=== PATIENT | female | born 1940 | race Caucasian/White ===

== ENCOUNTER 2016-07-26 12:06 | Outpatient (CLI) ==
[2015-01-23 12:19] VITALS: BMI 29.0
--- NOTE | 2016-07-27 07:33 | MAMMO ---
EXAM: Bilateral digital screening mammogram History: Screening Comparison: Bilateral mammogram 04/23/2015 Findings: MLO and CC views of bilateral breasts demonstrate extremely dense breast parenchyma which limits the sensitivity of mammography. Stable benign bilateral breast calcifications. There are n o dominant masses, no suspicious microcalcifications and no architectural distortions Impression: Benign stable mammogram. Recommend followup routine screening mammography in 1 year. BIRADS 2
== END 2016-07-26 12:07 | disposition home or self-care (01) ==
LOC: RAD 12:06
PROVIDERS: ATTEND Internal Medicine
DX: Z12.31 Encounter for screening mammogram for malignant neoplasm of breast (principal)

== ENCOUNTER 2016-10-15 20:06 | Emergency (ER) ==
[2016-10-15 20:13] VITALS: BP 111/67; TEMP 99.5; BMI 29.9
[2016-10-15 21:16] LABS: BASOPHILS # (AUTO) 0.1 K/uL (0-0.2); BASOPHILS % (AUTO) 1.7 % (0.0-3.0); EOSINOPHILS # (AUTO) 0.3 K/ul (0.0-0.7); EOSINOPHILS % (AUTO) 6.4 % (0.0-7.0); HEMATOCRIT 37.4 % (37.0-47.0); HEMOGLOBIN 12.9 g/dl (12.0-16.0); IMMATURE GRANULOCYTE % (AUTO) 0.2 % (0.0-5.0); LYMPHOCYTES # (AUTO) 0.8 K/uL (0.60-3.4); LYMPHOCYTES % (AUTO) 15.1 (10.0-50.0); MEAN CORPUSCULAR HEMOGLOBIN 31.1 pg (27.0-31.0); MEAN CORPUSCULAR HGB CONC 34.5 (31.8-35.4); MEAN CORPUSCULAR VOLUME 90.1 fl (81.0-99.0); MONOCYTES # (AUTO) 0.7 K/uL (0.4-2.0); MONOCYTES % (AUTO) 12.1 (0-10); NEUTROPHILS # (AUTO) 3.5 K/ul (2.0-6.9); NEUTROPHILS % (AUTO) 64.5; PLATELET COUNT 179 10^3/uL (140-440); RED BLOOD COUNT 4.15 10^6/ul (4.20-5.40); WHITE BLOOD COUNT 5.35 K/ul (4.6-10.2)
[2016-10-15 21:29] LABS: FLU INTERNAL QC INTERNAL QC VALID; RAPID FLU A POSITIVE (NEGATIVE); RAPID FLU B NEGATIVE (NEGATIVE)
[2016-10-15 21:31] LABS: ALBUMIN 4.3 g/dL (3.4-5.0); ALBUMIN/GLOBULIN RATIO 1.26; ANION GAP 13.9; BILIRUBIN,TOTAL 0.94 mg/dL (0.00-1.20); BUN/CREATININE RATIO 8.73; CALCIUM 9.8 mg/dL (8.2-10.2); CREATININE 1.03 mg/dL (0.60-1.30); POTASSIUM 3.9 mmol/L (3.5-5.10); TOTAL PROTEIN 7.7 g/dL (5.8-8.1)
--- NOTE | 2016-10-15 21:43 | ED.PDOC ---
General ED Provider: Dr. CHELSEA MICHEL-ER Chief Complaint: Fever Stated Complaint: joseline got a cough and fever since yesterday Time Seen by Physician: 20:10 Mode of Arrival: Walk-In Information Source: Patient Exam Limitations: No limitations Primary Care Provider: JEANCARLOS GALLEGO Nursing and Triage Documentation Reviewed and Agree: Yes Respiratory Complaint Exam - Respiratory Complaint/Exam Onset/Duration: 24hrs Symptoms Are: Still present Timing: Intermittent Initial Severity: Mild Current Severity: Mild Location: Nose, Chest Character: Reports: Non-productive cough Aggravating: Reports: URI Alleviating: Reports: None Associated Signs and Symptoms: Reports: Fever, URI, Nasal congestion. Denies: Rapid breathing, Dyspnea, Chills, Chest pain, Pleuritic chest pain, Wheezing, Hemoptysis, Dizziness, Calf pain, Calf swelling, Edema, Hoarseness, Sinus discomfort, Vomiting, Sore throat, Weight loss, Decreased oral intake, Increased thirst, Increased appetite, Increased urination History of Healthcare-Acquired Pneumonia: No Tuberculosis Risk Factors: Reports: None Home Oxygen Use: No Recent Stress Test: No Recent Echo/LV Function: No Current Antibiotic Use: No Current Asthma Medication Use: No Respiratory Distress: None Dysphagia Present: No Stridor Present: No JVD Present: No Accessory Muscle Use: No Retractions: Not Present Diminished Breath Sounds: No Sinus Tenderness: None Grunting Respirations: No Kussmaul Respirations: No Differential Diagnoses: Pneumonia, Bronchitis, Influenza Review of Systems - Review Of Systems Constitutional: Reports: Chills, Fever Eyes: Reports: No symptoms Ears, Nose, Mouth, Throat: Reports: No symptoms Respiratory: Reports: Cough Cardiac: Reports: No symptoms GI: Reports: No symptoms : Reports: No symptoms Musculoskeletal: Reports: No symptoms Skin: Reports: No symptoms Neurological: Reports: No symptoms Endocrine: Reports: No symptoms Hematologic/Lymphatic: Reports: No symptoms All Other Systems: Reviewed and Negative Past Medical History - Past Medical History Endocrine: Reports: DM 2 Cardiovascular: Reports: Hypertension Respiratory: Reports: None Hematological: Reports: None Gastrointestinal: Reports: None Genitourinary: Reports: None Neuro/Psych: Reports: None Musculoskeletal: Reports: Other Cancer: Reports: Colon (colon ) Last Menstrual Period: UNKNOWN - Surgical History General Surgical History: Reports: Orthopedic (Bilateral Knee replacements ), Back Surgery, Other (COLON RESECTION. ) - Family History Family History: Reports: Unknown - Social History Smoking Status: Never smoker Hx Substance Use: No Alcohol Screening: None Lives: With family Physical Exam - Physical Exam Appearance: Well-appearing, No pain distress, Well-nourished Eyes: JOLENE, EOMI, Conjunctiva clear ENT: Ears normal Neck: Supple Respiratory: Airway patent, Breath sounds clear, Breath sounds equal, Respirations nonlabored Cardiovascular: RRR GI/: Soft, Nontender, No masses, Bowel sounds normal, No Organomegaly Musculoskeletal: Normal strength Skin: Warm Neurological: Sensation intact Psychiatric: Affect appropriate, Mood appropriate Interpretation - Radiology Interpretation Radiology Interpretation By: ED Physician Radiology Results: Negative Exam Interpreted: CXR Critical Care Note - Critical Care Note Total Time (mins): 0 Course - Course Hematology/Chemistry: 10/15/16 20:45 10/15/16 20:45 Orders, Labs, Meds: Lab Review 10/15/16 10/15/16 20:35 20:45 WBC 5.35 RBC 4.15 L Hgb 12.9 Hct 37.4 MCV 90.1 MCH 31.1 H MCHC 34.5 RDW Coeff of Elizabeth 12.9 Plt Count 179 Immature Gran % (Auto) 0.2 Neut % (Auto) 64.5 Lymph % (Auto) 15.1 [place] % (Auto) 12.1 H Eos % (Auto) 6.4 Baso % (Auto) 1.7 Immature Gran # (Auto) 0.0 Neut # 3.5 Lymph # 0.8 [place] # 0.7 Eos # 0.3 Baso # 0.1 Sodium 133 L Potassium 3.9 Chloride 94 L Carbon Dioxide 29 Anion Gap 13.9 BUN 9 Creatinine 1.03 Estimated GFR (MDRD) 52.00 BUN/Creatinine Ratio 8.73 Glucose 134 H Calcium 9.8 Total Bilirubin 0.94 AST 47 H ALT 56 Alkaline Phosphatase 64 Total Protein 7.7 Albumin 4.3 Globulin 3.4 Albumin/Globulin Ratio 1.26 Influenza A (Rapid) Positive H Influenza B (Rapid) Negative Orders Category Date Time Status BLOOD CULTURE Stat LAB 10/15/16 20:45 Received CBC W/ AUTO DIFF Stat LAB 10/15/16 20:45 Completed COMPREHENSIVE METABOLIC PANEL Stat LAB 10/15/16 20:45 Completed MOLECULAR GROUP A STREP Stat LAB 10/15/16 20:35 Results RAPID FLU A/B Stat LAB 10/15/16 20:35 Completed STREP SCREEN Stat LAB 10/15/16 20:35 Results Oseltamivir Phosphate [Tamiflu] MEDS 10/15/16 22:00 Ordered 75 mg PO ONCE CXR [CHEST, 2 VIEWS PA & LAT] Stat RADS 10/15/16 20:34 Taken Vital Signs: Temp Pulse Resp BP Pulse Ox 10/15/16 20:07 99.5 F 93 H 20 111/67 96 Departure - Departure Time of Disposition: 21:44 Disposition: HOME SELF-CARE Discharge Problem: Influenza Instructions: Influenza (ED) Condition: Good Pt referred to PMD for follow-up: Yes Additional Instructions: tamiflu 75mg bid #10--fluids--rest--recheck in 48hrs if not better Allergies/Adverse Reactions: Allergies codeine Adverse Reaction (Intermediate, Verified 10/15/16 20:13) Nausea Home Medications: Ambulatory Orders Alprazolam [Xanax] 0.25 mg PO BID 05/27/13 Calcium Carbonate/Vitamin D3 [Os-Atif 500+D Tablet] 1 each PO BID 05/27/13 Digoxin [Lanoxin] 250 mcg PO DAILY 05/27/13 Gabapentin [Neurontin] 600 mg PO BEDTIME 05/27/13 Losartan/Hydrochlorothiazide [Hyzaar 50-12.5 Tablet] 1 each PO DAILY 05/27/13 Meclizine HCl [Motion Sickness Relief] 25 mg PO Q8HR 05/27/13 Memantine HCl [Namenda] 10 mg PO BID 05/27/13 Metformin HCl [Glucophage] 500 mg PO BIDWM 05/27/13 Propranolol HCl [Inderal] 40 mg PO BID 05/27/13 Venlafaxine HCl [Effexor Xr] 75 mg PO DAILY 05/27/13 Marion-3 Fatty Acids [Fish Oil] 500 mg PO BID 09/14/15 Red Yeast Rice 600 mg PO DAILY 09/14/15 Guaifenesin/D-Methorphan Hb/PE [Robitussin Cough-Cold Cf Liq] 1 - 2 teaspoon PO Q4-6H PRN alem 09/28/16 Disposition Discussed With: Patient
[2016-10-15] MEDS ORDERED: TAMIFLU ONE (21:45)
[2016-10-15] MEDS ORDERED: TAMIFLU PO SCH (22:00)
[2016-10-15 22:57] LABS: ABG BASE EXCESS 2 (-2.0-2.0); ABG HCO3 25.8 (22.0-26.0); ABG PH 7.452 (7.35-7.45); ABG TCO2 27 (22.0-28.0)
--- NOTE | 2016-10-16 06:02 | DI ---
Examination: Two radiographic images of the chest. Comparison: 10/13/2012. Reason for study: Cough. FINDINGS: No pneumothorax, pleural effusion, or focal consolidation. The cardiac silhouette is not enlarged. The osseous structures are grossly unremarkable. Impression: No acute cardiopulmonary process.
== END 2016-10-15 21:51 | disposition home or self-care (01) ==
LOC: ED 20:06
DX: J09.X2 Influenza due to identified novel influenza A virus with other respiratory manifestations (principal); E11.9 Type 2 diabetes mellitus without complications; I10 Essential (primary) hypertension; Z79.899 Other long term (current) drug therapy
CPT/HCPCS: 36415; 80053; 82803; 85025; 87040; 87651; 87804; 87880; 93005; 93010; 99283

== ENCOUNTER 2017-08-01 11:04 | Outpatient (CLI) | payer OTHER ==
--- NOTE | 2017-08-02 09:52 | MAMMO ---
EXAM: Bilateral digital screening mammogram (2-D and 3-D) History: Screening Comparison: Bilateral mammogram 07/26/2016 Findings: MLO and CC views of bilateral breasts demonstrate heterogeneously dense breast parenchyma which can obscure small lesions. CAD was reviewed by the radiologist. Tomosynthesis was performed. Stable benign bilateral breast calcifications. There are no dominant masses, no suspicious microcal cifications and no architectural distortions Impression: Benign stable mammogram. Recommend followup routine screening mammography in 1 year. BIRADS 2
== END 2017-08-01 11:05 | disposition home or self-care (01) ==
LOC: RAD 11:04
PROVIDERS: ATTEND Internal Medicine
DX: Z12.31 Encounter for screening mammogram for malignant neoplasm of breast (principal)
CPT/HCPCS: 77067

== ENCOUNTER 2017-08-03 06:30 | Outpatient (CLI) ==
--- NOTE | 2017-08-07 14:31 | ECHO2D ---
Date of Exam: 08/03/17 Ordering Physician: DR. JEANCARLOS GALLEGO Room #: OP Reason for Echo: SURGICAL CLEARANCE, SOB M-Mode Normal Adult Results LV Dimensions Normal Adult Results AoV Opening excursions >1.6 >1.6 LVEDD-base- 3.5-5.8 4.1 Ao root dimensions 2.0-3.7 3.1 LVESD-base- 3.1-4.6 L. Atrium dimensions 1.9-3.8 3.7 Post. Wall thickness 0.8-1.1 1.2 IV septum (thickness) 0.7-1.2 1.3 Post. Wall excursion 0.72-1.3 NORMAL Septal motion NORMAL Systolic motion R. Ventricular cavity 1.5-2.0 NORMAL LVEF 60% 71% Paradoxical septal wall motion NORMAL 2-D : 2-D M Mode Echocardiogram was performed using apical four chamber and left parasternal long and short axis views. Mitral, tricuspid and aortic valves appear to be normal. Contractility of the left ventricle seems to be normal, so is the cavity size. Left atrial cavity size and aortic root appear to be normal. There is no pericardial effusion. There is no thrombus noted in the left ventricular or left aortic cavity. No mitral valve prolapse noted. M-MODE: MV: NORMAL AV: NORMAL TV: NORMAL PV: CHAMBER SIZE: NORMAL WALL MOTION: NORMAL PERICARDIUM: NORMAL INTERPRETATION: 1. LEFT VENTRICULAR HYPERTROPHY (MILD) 2. NORMAL LEFT VENTRICULAR CONTRACTILITY 3. NORMAL VALVES MTDD
--- NOTE | 2017-08-07 14:34 | ECHOSTRESS ---
Date of Exam: 08/03/17 Ordering Physician: DR. JEANCARLOS GALLEGO Reason for Echo: SURGICAL CLEARANCE, SOB, STRESS TEST--NO ISCHEMIA M-Mode Normal Adult Results LV Dimensions Normal Adult Results AoV Opening excursions >1.6 LVEDD-base- 3.5-5.8 Ao root dimensions 2.0-3.7 LVESD-base- 3.1-4.6 L. Atrium dimensions 1.9-3.8 Post. Wall thickness 0.8-1.1 IV septum (thickness) 0.7-1.2 Post. Wall excursion 0.72-1.3 Septal motion Systolic motion R. Ventricular cavity 1.5-2.0 LVEF 60% Paradoxical septal wall motion 2-D: NORMAL LEFT VENTRICULAR CONTRACTILITY--RESTING AND POST EXERCISE M-MODE: MV: AV: TV: PV: CHAMBER SIZE: WALL MOTION:NORMAL LEFT VENTRICULAR CONTRACTILITY--RESTING AND POST EXERCISE PERICARDIUM: INTERPRETATION: 1. NORMAL LEFT VENTRICULAR CONTRACTILITY--RESTING AND POST EXERCISE MTDD
--- NOTE | 2017-08-07 15:00 | STRESSECHO ---
Date of Test: 08/03/17 Reason for Exam: SURGICAL CLEARANCE Ordering Physician: DR. JEANCARLOS GALLEGO Physical Findings: S1, S2, NO S3 Current Medications: LANOXIN, INDERAL, METFORMIN, XANAX, EFFEXOR, MECLIZINE, GABAPENTIN, LOSARTAN, NAMENDA Resting EKG: SINUS RHYTHM/NO ACUTE CHANGES/ NONSPECIFIC ST-T WAVE CHANGES Target Heart Rate: 123/145 STAGE MPH/GRADE HEART RATE BPM BLOOD PRESSURE mmhg RHYTHM S-T SEGMENT +/- UP DOWN SYMPTOMS,COMMENTS At Rest 65 128/70 SR X NONE 1 1.7/10% 104 120/60 SR X NONE 2 2.5/12% 3 3.4/14% 4 4.2/16% 5 5.0/18% Immediately after 120 SR X FATIGUE Durations of Exercise: 3:56 Maximum Heart Rate Reached: 120 Reason for Termination: FATIGUE 1 MINUTE POST EXERCISE: HR 87 BPM, BP 154/50 MMHG, SR, +/-, NO COMMENTS 5 MINUTES POST EXERCISE: HR 74 BPM, BP 140/68 MMHG, SR, +/-, NO COMMENTS INTERPRETATION: 97% OXYGEN SATURATION WITH EXERCISE ON ROOM AIR METS 6.8 1. NO EVIDENCE OF ISCHEMIA BY ST-T WAVE 2. NO CHEST PAIN OR CHEST DISCOMFORT 3. BLOOD PRESSURE RESPONSE NORMAL 4. NO ARRHYTHMIAS NORMAL LEFT VENTRICULAR CONTRACTILITY RESTING AND POST EXERCISE MTDD
== END 2017-08-03 06:31 | disposition home or self-care (01) ==
LOC: CAR 06:30
PROVIDERS: ATTEND Internal Medicine
DX: R06.02 Shortness of breath (principal); I10 Essential (primary) hypertension; M21.612 Bunion of left foot; Z01.810 Encounter for preprocedural cardiovascular examination
CPT/HCPCS: 93005; 93010

== ENCOUNTER 2017-10-27 06:34 | Outpatient (CLI) | payer OTHER ==
--- NOTE | 2017-10-30 12:40 | ECHO2D ---
Date of Exam: 10/27/17 Ordering Physician: DR. JEANCARLOS GALLEGO Room #: OP Reason for Echo: SOB, DIZZINESS, ATAXIA M-Mode Normal Adult Results LV Dimensions Normal Adult Results AoV Opening excursions >1.6 >1.6 LVEDD-base- 3.5-5.8 4.1 Ao root dimensions 2.0-3.7 3.3 LVESD-base- 3.1-4.6 L. Atrium dimensions 1.9-3.8 4.3 Post. Wall thickness 0.8-1.1 1.2 IV septum (thickness) 0.7-1.2 1.2 Post. Wall excursion 0.72-1.3 NORMAL Septal motion NORMAL Systolic motion R. Ventricular cavity 1.5-2.0 NORMAL LVEF 60% 59% Paradoxical septal wall motion NORMAL 2-D : 2-D M Mode Echocardiogram was performed using apical four chamber and left parasternal long and short axis views. Mitral, tricuspid and aortic valves appear to be normal. Contractility of the left ventricle seems to be normal, so is the cavity size. Enlarged left atrial cavity size. Aortic root appears to be normal. There is no pericardial effusion. There is no thrombus noted in the left ventricular or left aortic cavity. No mitral valve prolapse noted. M-MODE: MV: NORMAL AV: NORMAL TV: NORMAL PV: CHAMBER SIZE: ENLARGED LEFT ATRIAL CAVITY WALL MOTION: NORMAL PERICARDIUM: NORMAL INTERPRETATION: 1. BORDERLINE LEFT VENTRICULAR HYPERTROPHY 2. NORMAL LEFT VENTRICULAR CONTRACTILITY 3. NORMAL VALVES MTDD
== END 2017-10-27 06:35 | disposition home or self-care (01) ==
LOC: CAR 06:34
PROVIDERS: ATTEND Internal Medicine
DX: R06.02 Shortness of breath (principal); R42 Dizziness and giddiness; R27.0 Ataxia, unspecified
CPT/HCPCS: 93005; 93010

== ENCOUNTER 2017-10-30 06:19 | Outpatient (CLI) ==
[2017-10-30] MEDS ORDERED: DOBUTAMINE 250 ML IV ONE (06:56)
[2017-10-30] MEDS ORDERED: ATROPINE SULFATE PFS ONE (06:56)
--- NOTE | 2017-10-30 09:50 | NM ---
EXAM: Myocardial perfusion imaging HISTORY: Shortness of breath and dizziness COMPARISON: None. TECHNIQUE: Patient was injected 3.6 mCi of thallium 201 chloride intravenously while at rest. SPECT imaging of the heart was acquired. The patient was stressed using dobutamine protocol and injected 2 6.9 mCi of Tc99m Sestamibi intravenously. Another SPECT imaging of the heart was acquired. Gated ca rdiac study was performed. FINDINGS: Moderately reduced perfusion is noted involving the anterior wal and intraventricular septu m. l. This shows reperfusion on delayed imaging consistent with reversible ischemia. Inferior and l ateral jackson show normal perfusion. Left ventricular ejection fraction is 74%. Region of anterior w all and septum is hypokinetic. IMPRESSION: 1. SPECT myocardial perfusion imaging shows reversible ischemia involving the anterior wall and intr aventricular septum. 2. Normal left ventricular ejection fraction. Slightly hypokinetic anterior wall and septum.
--- NOTE | 2017-10-30 12:48 | ECHOSTRESS ---
Date of Exam: 10/30/17 Ordering Physician: DR. JEANCARLOS GALLEGO Reason for Echo: SOB, ATAXIA, STRESS TEST--INCONCLUSIVE M-Mode Normal Adult Results LV Dimensions Normal Adult Results AoV Opening excursions >1.6 LVEDD-base- 3.5-5.8 Ao root dimensions 2.0-3.7 LVESD-base- 3.1-4.6 L. Atrium dimensions 1.9-3.8 Post. Wall thickness 0.8-1.1 IV septum (thickness) 0.7-1.2 Post. Wall excursion 0.72-1.3 Septal motion Systolic motion R. Ventricular cavity 1.5-2.0 LVEF 60% Paradoxical septal wall motion 2-D: NORMAL LEFT VENTRICULAR CONTRACTILITY--RESTING AND DURING DOBUTAMINE INFUSION M-MODE: MV: AV: TV: PV: CHAMBER SIZE: WALL MOTION: NORMAL LEFT VENTRICULAR CONTRACTILITY--RESTING AND DURING DOBUTAMINE INFUSION PERICARDIUM: INTERPRETATION: 1. NORMAL LEFT VENTRICULAR CONTRACTILITY--RESTING AND DURING DOBUTAMINE INFUSION MTDD
== END 2017-10-30 06:20 | disposition home or self-care (01) ==
LOC: CAR 06:19
PROVIDERS: ATTEND Internal Medicine
DX: R94.31 Abnormal electrocardiogram [ECG] [EKG] (principal); R06.02 Shortness of breath; R42 Dizziness and giddiness; R27.0 Ataxia, unspecified

== ENCOUNTER 2017-10-31 08:04 | Outpatient (CLI) ==
--- NOTE | 2017-10-31 09:21 | US ---
EXAM: ULTRASOUND CAROTID DUPLEX, BILATERAL HISTORY: Dizziness FINDINGS: Eagle-scale ultrasound, color Doppler and spectral analysis was performed. Velocities are in meters per second. By eagle scale and color Doppler imaging, there were regions of heterogeneous plaque formation identif ied within the carotid bulbs and internal carotid arteries. These regions of plaque appeared to anmol in less than 50% vessel diameter. RIGHT: External carotid artery peak systolic velocity: 0.7/0.0 Common carotid artery peak systolic velocity/end diastolic velocity: 0.9/0.2 Internal carotid artery peak systolic velocity: 0.5 ICA/CCA peak systolic velocity ratio: 0.5 ICA end diastolic velocity: 0.1 LEFT: External carotid artery peak systolic velocity: 0.7/0.0 Common carotid artery peak systolic velocity/end diastolic velocity: 0.7/0.2 Internal carotid artery peak systolic velocity: 0.5 ICA/CCA peak systolic velocity ratio: 0.8 ICA end diastolic velocity: 0.2 The right and left vertebral arteries were antegrade. IMPRESSION: 1. By eagle scale and color Doppler imaging, there were regions of heterogeneous plaque formation camila ntified within the carotid bulbs and internal carotid arteries. These regions of plaque appeared to remain less than 50% vessel diameter. 2. Internal carotid artery peak systolic velocities and ICA/CCA peak systolic velocity ratios indica te no hemodynamically significant stenosis bilaterally. 3. Both vertebral arteries were antegrade.
--- NOTE | 2017-10-31 15:25 | MRI ---
EXAM: MRI brain without and with IV contrast. DATE: 31 October 2017. HISTORY: .Dizziness, ataxia, forgetfulness. Symptoms x 1 week. TECHNIQUE: Sagittal T1W pre and postcontrast, axial T2W, axial FLAIR, axial T1W pre and postcontrast , axial DWI, coronal T1W postcontrast, and coronal T2W GRE sequences of the brain were obtained using 1.2 Sandra magnet. CONTRAST: Dotarem - 14 ml IV. COMPARISON: CT head 14 April 2014 and 05/06/2010. MRI brain 01/07/2016. FINDINGS: The lateral ventricles, third ventricle, Sylvian fissures are disproportionally large. Tr ansverse dimension across both lateral ventricles is 4.2 cm. Transverse dimension across the third v entricle is 8.2 mm. Aqueduct of Sylvius is patent. Fourth ventricle is not substantially enlarged. Some cerebral sulci are upper normal to slightly prominent. No midline shift, mass effect or abnorm al extra-axial fluid collection is apparent. No acute infarct, hemorrhage or enhancing neoplasm is i dentified. No abnormal contrast enhancement is identified in the brain, meninges or dura. Narrow, c onfluent rim of T2W/FLAIR hyperintensity is observed in the white matter abutting each lateral ventri carlos. Large number of 2-10 mm, T2W/FLAIR bright, non-enhancing foci are scattered in the pereyra radia ta, centrum semiovale and subcortical white matter bilaterally. The reveles - white matter differentiat ion is normal. No migration or diverticulation abnormality is identified. The amygdala, hippocampus , and parahippocampal gyri are similar bilaterally. The 7th/8th cranial nerve complexes, cerebellopo ntine angles, brainstem, and visible cervical spinal cord are normal. There is no cerebellar tonsill ar ectopia. The pituitary gland is normal in size and signal. Corpus callosum body is mildly bowed upward due to ventricular prominence. Flow voids are present in the major intracranial arteries and in the dural venous sinuses. No aneurysm, AVM or dural venous sinus thrombosis is apparent. No orbi t abnormality is identified. The mastoid air cells are unremarkable. There is no acute sinusitis. No neck mass or lymphadenopathy is detected. Thickening of the inner table of the frontal bone appea rs benign. No calvarial neoplasm or acute fracture is evident. IMPRESSIONS: 1. No acute infarct, hemorrhage, or enhancing neoplasm. 2. Mild/moderate supratentorial small vessel disease. 3. Probable central > peripheral cerebral atrophy. In the right clinical setting, chronic NPH super imposed on minor atrophy might be considered. 4. Moderate/marked, benign hyperostosis frontalis interna.
== END 2017-10-31 08:05 | disposition home or self-care (01) ==
LOC: RAD 08:04
PROVIDERS: ATTEND Internal Medicine
DX: R42 Dizziness and giddiness (principal); R27.0 Ataxia, unspecified; R41.3 Other amnesia

== ENCOUNTER 2018-06-11 13:38 | Outpatient (CLI) | payer OTHER | END 2018-06-11 13:39 | disposition home or self-care (01) | LOC: CAR 13:38 | PROVIDERS: ATTEND Psychiatry & Neurology Sleep Medicine | DX: G47.33 Obstructive sleep apnea (adult) (pediatric) (principal) | CPT/HCPCS: 95810 ==

== ENCOUNTER 2018-08-27 09:06 | Outpatient (CLI) | payer OTHER ==
--- NOTE | 2018-08-27 10:14 | MAMMO ---
EXAM: Bilateral digital screening mammogram (2-D and 3-D) History: Screening Comparison: Bilateral mammogram 08/01/2017 Findings: MLO and CC views of bilateral breasts demonstrate heterogeneously dense breast parenchyma which can obscure small lesions. CAD was reviewed by the radiologist. Tomosynthesis was performed. Stable benign bilateral breast calcifications. There are no dominant masses, no suspicious microcal cifications and no architectural distortions Impression: Benign stable mammogram. Recommend followup routine screening mammography in 1 year. BIRADS 2, benign
== END 2018-08-27 09:07 | disposition home or self-care (01) ==
LOC: RAD 09:06
PROVIDERS: ATTEND Internal Medicine
DX: Z12.31 Encounter for screening mammogram for malignant neoplasm of breast (principal)

== ENCOUNTER 2018-10-19 09:11 | Outpatient (CLI) ==
--- NOTE | 2018-10-19 09:55 | DI ---
EXAM: Left elbow three-view HISTORY: Left elbow pain COMPARISON: None FINDINGS: The bones are normal. The alignment is normal. No joint effusion. No focal soft tissue abn ormality. IMPRESSION: Normal examination.
--- NOTE | 2018-10-19 09:55 | DI ---
Exam: Cervical spine three-view. HISTORY: Neck pain. Comparison: CT neck 04/23/2010. Findings: Anterior, lateral and to open mouth views of the cervical spine are submitted. These demo nstrate multilevel mild to moderate degenerative disc and facet arthropathy with no compression fract ure. There is 2 mm retrolisthesis of C6 on C7. The odontoid process appears intact and normally everardo tered. The patient is edentulous. The prevertebral soft tissues within normal limits. Impressions: Multilevel mild to moderate degenerative disease with no compression fracture. 2 mm retrolisthesis of C6 on C7.
--- NOTE | 2018-10-19 09:55 | DI ---
Exam: Left shoulder three-view. HISTORY: Left shoulder pain. Findings: Three views of the left shoulder are submitted. These demonstrate mild glenohumeral osteo phytosis. There is mild acromioclavicular osteophytosis. No acute fracture or dislocation. No osse ous erosion or radiodense foreign body. No soft tissue calcifications. The adjacent left ribs appea r intact there is no pneumothorax. No focal soft tissue swelling. Impressions: Mild degenerative findings of the glenohumeral and acromioclavicular joints with no acu te fracture or dislocation of the left shoulder.
== END 2018-10-19 09:12 | disposition home or self-care (01) ==
LOC: RAD 09:11
PROVIDERS: ATTEND Internal Medicine
DX: M25.512 Pain in left shoulder (principal); M54.2 Cervicalgia; M25.522 Pain in left elbow

== ENCOUNTER 2018-11-20 08:00 | Outpatient (RCR) ==
--- NOTE | 2018-11-14 11:10 | RS.OTEVAL ---
Subjective Date of Note: 11/14/18 Visit #: 1 Number of visits approved by Insurance: 1 Date of Evaluation: 11/14/18 Payer Source: MEDICARE Date of Onset/Injury/Change in Status: 05/24/13 Surgery Performed?: Yes (TKA) Treatment Diagnosis: Left shoulder pain Treatment Side (optional): Left Prior Level of Function.....Patient was independent with: ADL's, Self Care, Work /Vocation, Caregiving, Ambulation/Mobility, Community Integration/Access History of Condition/Mechanism of Injury: Pt reports she has had pain for about 3 years of and on. Pt now has pain whenever she moves her LUE into shoulder flexion, and external rotation. Pt reported pain at 4/5. Pt had facial grimaces with shoulder flexion whether she was in supine or in sitting postion. Pt then reports numbness when she has her arm in a position for a long time. Pt reports tingling in her hands when in a position for a long time. Level of Function: Pt is independent with self cares. Pt has pain with shoulder flexion and external rotation with LUE. Pt having a hard time with completing tasks up over her head. Pt having a hard time with fixing her hair. Functional Limitations: Sleep, Self Care, Reaching, Lifting, Carrying Current Complaints/Gains: Pt has difficulty sleeping on the LUE. Pt reports she has trouble trying to peel her potatoes and cutting her foods. Pt reports if she has her LUE in a certain position for a while then her hand will go tingly. Pt reports her LUE often feels heavy and weak. Pt reported her pain at a 4/10 when she moves her LUE into flexion and ext. rot. Medical History Medical History: Unremarkable, Diabetes, Arthritis, Cancer Medical History Comments:: tachycardia, B TKA, heart catheter, Toe surgery, CTR on RUE, breast biopsy, Back surgery 2006. hysterectomy 1970. Surgical History: Knee Replacement Surgical History Comments:: hysterectomy, B TKA, heart catheterization, Smoking Status: Never smoker Diagnostic Testing/Imaging:: X-ray indicative of severe OA prior to surgery. Patient's Goals: To be able to use my left arm without this pain and heaviness. Pain Assessment - Pain Description Pain Description: Tightness, Radiating, Sharp, Aching Pain Location: Left posterior scapula and down the left shoulder deltoid during shoulder flexion. Pt had tender points in the subscapularis and complained of left wrist has started hurting too. Pain Description: Aches, sharp, and feels weak. Pt reports tingling when in position longtime Current Pain Intensity: 4 Worst Pain Intensity: 8 Functional Outcome Measures UE Functional Index: 40 (Dash score 72%) - G Codes & Severity Modifier G Codes: . Source of G Code score: . Observation - Observation Posture: Normal Handedness: Right Shoulder ROM: Right WFL's Shoulder Muscle Strength: Right WFL's - Left Shoulder ROM Left Shoulder Flexion: 140 (stops due to pain) Left Shoulder Extension: 65 Left Shoulder Abduction: 150 (stops due to pain) Left Shoulder Horizontal Adduction: 35 Left Shoulder Internal Rotation: 90 Left Shoulder External Rotation: 40 Left Shoulder ROM Limitations: Pain - Left Shoulder Strength Left Shoulder Flexion: 3- Fair- Left Shoulder Extension: 4 Good Left Shoulder Abduction: 4- Good- Left Shoulder Adduction: 4 Good Left Shoulder External Rotation: 3- Fair- Left Shoulder Internal Rotation: 4- Good- - Special Tests Shoulder Drop Arm Test: Negative Left Elbow ROM: Bilaterally WFL's Elbow Muscle Strength: Bilaterally WFL's Wrist ROM: Bilaterally WFL's Wrist Muscle Strength: Bilaterally WFL's - Blasting Worker Strength Left Blasting Worker Strength: 33 Right Blasting Worker Strength: 41 Blasting Worker Strength Left Hand Blasting Worker Strength: 33 Right Hand Blasting Worker Strength: 41 Dynamometer Testing Position: 2nd Position Palpation Palpation Findings: Tenderness, Trigger Point, Muscle Guarding Comments:: Left scapula was not gliding easily. Sensation Right Upper Extremity: Intact/Normal Left Upper Extremity: Intact/Normal Sensation Description: Tingling Comments: After in a position of shoulder flexion for an extended period of time. Interventions - Exercise/Activities Exercise/Activities/Manual Therapy: Manual therapy-tenderpoint and trigger point releases to the posterior subcapularis, gentle scapular gliding and scapular release completed. Stretching over a roll placed under the patient at the scapular line and have her complete shoulder flexion x 10 reps. Educated patient to drink water. HOME EXERCISE PROGRAM: stretching over a roll behind her scapula hold 10 seconds x 15 reps. drinking water. ice if sore. - Objective Findings Objective Findings:: Pt's Left scapula was not gliding well. Pt has tender points and subscapularis tender points and needed manual therapy to decrease the pain and tenderness. - Charges Timed Code Treatment Minutes: 65 Total Treatment Time: 35 Procedures billed for this date of service:: Evaluation medium, MT x 2 EVALUATION COMPLEXITY LEVEL: HISTORY: Medium, EXAM OF BODY SYSTEMS: Medium, CLINICAL DECISION MAKING: Medium Assessment Assessment: Pt made progress with her pain and her AROM following manual therapy , scapular release and tender point release, scapular glides. Patient Education: Education of diagnosis, Body/Joint mechanics, Home Exercise Program, Education of Plan of Care Rehab Potential: Good Problems/Comments: Pt has pain with LUE shoulder AROM. Pt has weakness of LUE, weak public relations counselor and tingles after in a position for prolonged amount of time. Short Term Goals Goal #1: LUE shoulder pain to 2/10. Goal to be met by: 11/23/18 Goal #2: Increase LUE shoulder external rotation to 90 deg. Goal to be met by: 11/23/18 Goal #3: Pt to increase strength of LUE shoulder to 4/5. Goal to be met by: 11/23/18 Goal #4: Pt to be independent with home exercise program. Goal to be met by: 11/23/18 Fitness Instructor Goals Goal #1: LUE shoulder pain to 0/10. Goal to be met by: 12/07/18 Goal #2: Increase LUE shoulder AROM to be WFL. Goal to be met by: 12/07/18 Goal #3: Pt to increase strength of LUE shoulder to 4+/5. Goal to be met by: 12/07/18 Goal to be met by: 12/07/18 Plan - Treatment to be provided Procedures: Therapeutic Exercises, Therapeutic Activity, Neuromuscular Rehab, Manual Therapy, Patient Education Modalities: Ultrasound/Phonophoresis, Hot Packs - Treatment Plan Frequency: 3 X week Duration: 3 weeks Dates of Fitness Instructor Goals: December 07, 2018 Expiration date of current Insurance Approval:: December 07, 2018 - Treatment Code (1) Left shoulder pain Code(s): M25.512 - PAIN IN LEFT SHOULDER Comments: M25.512 Left shoulder pain (2) Stiffness of left shoulder joint Code(s): M25.612 - STIFFNESS OF LEFT SHOULDER, NOT ELSEWHERE CLASSIFIED Comments: M25.612 Joint stiffness of Left shoulder
--- NOTE | 2018-11-16 15:40 | RS.OTDNOTE ---
Subjective Date of Note: 11/16/18 Visit #: 2 Number of visits approved by Insurance: 9 Date of Evaluation: 11/14/18 Payer Source: MEDICARE Treatment Diagnosis: Left shoulder pain *Precautions: NA Current Complaints/Gains: Pt states she had a shot in her shoulder on Monday. States she has not been applying a CP but is agreeable to making and donning a CP 1-2 times daily over the wknd and after prolonged UE use. Pain Assessment - Pain Description Pain Description: Tightness, Radiating, Sharp, Aching Pain Location: Left posterior scapula and down the left shoulder deltoid during shoulder flexion. Pt had tender points in the subscapularis and complained of left wrist has started hurting too. Pain Description: Aches, sharp, and feels weak. Pt reports tingling when in position longtime Modalities - Treatment Modality: Ultrasound Parameters/Method Applied: .5w/cm2 x 12 mins to posterior shoulder/trapezius Patient Position: Sitting - Hot Pack/Cryotherapy Treatment: Hot Pack, Cryotherapy Interventions - Exercise/Activities Exercise/Activities/Manual Therapy: Manual therapy/MFR-tenderpoint and trigger point releases to the posterior subcapularis with gentle scapular gliding and scapular release completed. Pt in supine position for PROM-AROM and isometric ex's of shoulder flexion/extension, IR/ER, and adb/adduction. HOME EXERCISE PROGRAM: Isometric ex's of shoulder along with applying CP x 1-2 times daily - Objective Findings Objective Findings:: Pt's Left scapula was not gliding well. Pt has tender points and subscapularis tender points and needed manual therapy to decrease the pain and tenderness. - Charges Timed Code Treatment Minutes: 35 Total Treatment Time: 45 Procedures billed for this date of service:: CP US MT Assessment Patient Education: Education of diagnosis, Body/Joint mechanics, Home Exercise Program, Home Safety, Activity Modification, Education of Plan of Care Patient demonstrates compliance with HEP?: Yes Short Term Goals Goal #1: LUE shoulder pain to 2/10. Goal to be met by: 11/23/18 Progress towards goal: Progressing Goal #2: Increase LUE shoulder external rotation to 90 deg. Goal to be met by: 11/23/18 (following PROM) Progress towards goal: Partially Met Goal #3: Pt to increase strength of LUE shoulder to 4/5. Goal to be met by: 11/23/18 Progress towards goal: Partially Met Goal #4: Pt to be independent with home exercise program. Goal to be met by: 11/23/18 Progress towards goal: Progressing Billet Worker Goals Goal #1: LUE shoulder pain to 0/10. Goal to be met by: 12/07/18 Progress towards goal: Progressing Goal #2: Increase LUE shoulder AROM to be WFL. Goal to be met by: 12/07/18 Progress towards goal: Progressing Goal #3: Pt to increase strength of LUE shoulder to 4+/5. Goal to be met by: 12/07/18 Progress towards goal: Progressing Goal to be met by: 12/07/18 Plan Dates of Billet Worker Goals: December 07, 2018 Expiration date of current Insurance Approval:: 12/07/18 PLAN: Continue per POC x2/wk to max functional UE AROM/strength.
--- NOTE | 2018-11-20 08:35 | RS.OTDNOTE ---
Subjective Date of Note: 11/20/18 Visit #: 3 Number of visits approved by Insurance: 9 Date of Evaluation: 11/14/18 Payer Source: MEDICARE Treatment Diagnosis: Left shoulder pain *Precautions: NA Current Complaints/Gains: Pt states no c/o pain at rest or with all movement/ TE. States she made a CP as instructed and has been utilizing it several times daily. States good understanding of HEP of isometric with exercise print-out. States between the shot and the CP, "I'm fixed." Pt agreeable to DC at this time-I with HEP and CP application. Pain Assessment - Pain Description Pain Description: Tightness, Radiating, Sharp, Aching Pain Location: Left posterior scapula and down the left shoulder deltoid during shoulder flexion. Pt had tender points in the subscapularis and complained of left wrist has started hurting too. Pain Description: Aches, sharp, and feels weak. Pt reports tingling when in position longtime Current Pain Intensity: 0 Worst Pain Intensity: 0 Interventions - Exercise/Activities Exercise/Activities/Manual Therapy: Print-out and instructions of HEP performed including isometric ex of shoulder flexion, extension, IR/ER, and shoulder retraction ex's. Pt ed on continued use of CP application and to contact therapy if pain or decreased AROM begins. HOME EXERCISE PROGRAM: Isometric ex's of shoulder along with applying CP x 1-2 times daily - Objective Findings Objective Findings:: Pt's Left scapula was not gliding well. Pt has tender points and subscapularis tender points and needed manual therapy to decrease the pain and tenderness. - Charges Timed Code Treatment Minutes: 20 Total Treatment Time: 20 Procedures billed for this date of service:: EX Assessment Patient Education: Education of diagnosis, Body/Joint mechanics, Home Exercise Program, Home Safety, Activity Modification, Education of Plan of Care Patient demonstrates compliance with HEP?: Yes Short Term Goals Goal #1: LUE shoulder pain to 2/10. Goal to be met by: 11/23/18 Progress towards goal: Met Goal #2: Increase LUE shoulder external rotation to 90 deg. Goal to be met by: 11/23/18 (following PROM) Progress towards goal: Met Goal #3: Pt to increase strength of LUE shoulder to 4/5. Goal to be met by: 11/23/18 Progress towards goal: Met Goal #4: Pt to be independent with home exercise program. Goal to be met by: 11/23/18 Progress towards goal: Met Fpc Goals Goal #1: LUE shoulder pain to 0/10. Goal to be met by: 12/07/18 Progress towards goal: Met Goal #2: Increase LUE shoulder AROM to be WFL. Goal to be met by: 12/07/18 Progress towards goal: Met Goal #3: Pt to increase strength of LUE shoulder to 4+/5. Goal to be met by: 12/07/18 Progress towards goal: Met Goal to be met by: 12/07/18 Plan Dates of Fpc Goals: December 07, 2018 Expiration date of current Insurance Approval:: 12/07/18 PLAN: Pt DC'd at this time I with HEP/CP application and 0 c/o pain.
== END 2018-11-20 23:59 ==
PROVIDERS: ATTEND Orthopaedic Surgery
DX: M25.512 Pain in left shoulder (principal)